=== PATIENT | male | born 1955 | race African-American/Black ===

== ENCOUNTER 2022-12-26 16:26 | Emergency (ER) | payer OTHER, MEDICAID ==
[~2022-12-26] VITALS: Ht 182.9 cm; Wt 181.0 kg
[2022-12-26] MEDS ORDERED: MORPHINE SULFATE 4 MG/ML CPJ (NOT FOR IM USE) IV STA (17:26)
[2022-12-26] MEDS ORDERED: SODIUM CHLORIDE 0.9% 1,000 ML IV ONE (17:30)
[2022-12-26 18:52] LABS: BASOPHILS % 0.2 % (0.0-2.0); EOSINOPHILS % 1.2 % (0.0-5.0); HEMATOCRIT. 40.9 % (42.0-52.0); HEMOGLOBIN. 13.6 g/dL (14.0-18.0); LYMPHOCYTES % 7.5 % (20.0-50.0); MEAN CORPUSCULAR HEMOGLOBIN 28.2 pg (28.0-32.0); MEAN CORPUSCULAR VOLUME 84.8 fL (80.0-94.0); MONOCYTES % 5.4 % (2.0-8.0); NEUTROPHILS % 85.7 % (40.0-76.0); PLATELET 306 x1000/uL (130-400); RED BLOOD CELL COUNT 4.83 mill/uL (4.7-6.1); RED CELL DISTRIBUTION WIDTH 16.2 % (11.6-14.6)
[2022-12-26 19:03] LABS: CHLORIDE 106 mEq/L (98-107)
[2022-12-26 19:23] LABS: CREATINE KINASE 3948 IU/L (39-308)
[2022-12-26 23:42] LABS: CREATINE KINASE 3006 IU/L (39-308)
[2022-12-27 13:55] VITALS: BP 146/78
== END 2022-12-27 12:29 | disposition short-term general hospital (02) ==
LOC: ER 16:26
DX: M62.82 Rhabdomyolysis (principal); S80.811A Abrasion, right lower leg, initial encounter; I11.0 Hypertensive heart disease with heart failure; I50.9 Heart failure, unspecified; R51.9 Headache, unspecified; Z20.822 Contact with and (suspected) exposure to COVID-19; Z88.0 Allergy status to penicillin; W18.30XA Fall on same level, unspecified, initial encounter; Y93.89 Activity, other specified; Y92.89 Other specified places as the place of occurrence of the external cause; Y99.8 Other external cause status
CPT/HCPCS: 36415; 70450; 71045; 73030; 80053; 82550; 83605; 84145; 84484; 85025; 87426; 96361; 96374; 99285; C9803; J2270; J7030